=== PATIENT | female | born 2005 | race Caucasian/White ===

== ENCOUNTER 2024-02-05 18:10 | Outpatient (REF) | payer BC, SELFPAY | END 2024-02-05 18:11 | disposition home or self-care (01) | LOC: NPINS 18:10 | PROVIDERS: Visit Provider Pediatrics | DX: Z11.1 Encounter for screening for respiratory tuberculosis (principal) | CPT/HCPCS: 86480 ==

== ENCOUNTER 2025-01-23 11:27 | Outpatient (CLI) | payer BC, SELFPAY ==
[2025-01-25 09:18] LABS: QuantiFERON Mitogen minus NIL 9.95 IU/mL; QuantiFERON NIL 0.05 IU/mL; Quantiferon Plus TB1 minus NIL 0.01 IU/mL (<=0.34); Quantiferon Plus TB2 minus NIL 0.02 IU/mL (<=0.34); Quantiferon TB Gold Plus Negative (Negative)
== END 2025-01-23 11:28 | disposition home or self-care (01) ==
LOC: NPINS 11:29
PROVIDERS: Visit Provider Pediatrics
DX: Z11.1 Encounter for screening for respiratory tuberculosis (principal)
CPT/HCPCS: 86480

== ENCOUNTER 2025-02-05 01:31 | Emergency (ER) | payer BC, SELFPAY ==
--- OUTSIDE RECORDS SUMMARY | 2025-02-05 01:33 | XMS_ITS | Encounter Summary ---
Author Organization Formerly [facility], 1928–1983 and Affiliates Address [address] [place] [address] Care Team Providers Care Milk Drying Machine Operator Name Role Phone Unavailable Primary Care Provider Unavailabl e Encounter Details Date Type Department Care Team (Late st Contact Info) Description 03/18/2024 [facility] [place] [address] Christina Monroy MD [address] [facility] [address] [place] [address] Well adolescent visit (Primary Dx) Social History Tobacco Use Types Packs/Day Years Used Date Smoking Tobacco: Never Assessed Comments Unknown Sex and Gender Information Value Date Recorded Sex Assigned at Not on file Legal Sex Female 12:07 PM MDT Gender Identity Not on file Sexual Orientation Not on file documented as of this encounter Plan of Treatment Not on file documented as of this encounter Results * C. trachomatis / N. gonorrhea Amplified RNA (03/18/2024 10:30 PM MDT) Neisseria gonorrhea Amplified RNA Negative Negative, Repeat, Pending 03/19/2024 1:05 PM MDT [facility] Comment: Presumed negative for N. gonorrhoeae rRNA. Assay is a target amplification nucleic acid probe test utilizing target capture for the qualitative detection and differentiation of rRNA from Chlamydia trachomatis and/or Neisseria gonorrhoeae to aid in the diagnosis of urogenital disease. Negative results do not preclude possible infection, as results are dependent upon adequate specimen collection. Results should be interpreted in conjunction with other clinical and laboratory data available to the clinician. This assay is not intended for evaluation of suspected sexual abuse or for other medico-legal indications. Collection and testing of patient-collected vaginal swabs is not the preferred method for collection and is not intended to replace clinical examination. This test has not been validated for use with specimens collected by patients at home. Chlamydia trachomatis Amplified RNA Negative Negative, Repeat, Pending 03/19/2024 1:05 PM MDT [facility] Comment: Presumed negative for C. trachomatis rRNA. Assay is a target amplification nucleic acid probe test utilizing target capture for the qualitative detection and differentiation of rRNA from Chlamydia trachomatis and/or Neisseria gonorrhoeae to aid in the diagnosis of urogenital disease. Negative results do not preclude possible infection, as results are dependent upon adequate specimen collection. Results should be interpreted in conjunction with other clinical and laboratory data available to the clinician. This assay is not intended for evaluation of suspected sexual abuse or for other medico-legal indications. Collection and testing of patient-collected vaginal swabs is not the preferred method for collection and is not intended to replace clinical examination. This test has not been validated for use with specimens collected by patients at home. Urine Voided urine specimen / Unknown Non-blood Collection / Unknown 03/18/2024 10:30 PM MDT 03/18/2024 10:37 PM MDT us Christina Monroy MD LAB URINE IMMUNO ORDERABLES F inal Result [facility] [address] [place] [address], documented in this encounter Visit Diagnoses Diagnosis Well adolescent visit- Primary Routine or child health check documented in this encounter
--- OUTSIDE RECORDS SUMMARY | 2025-02-05 01:33 | XMS_ITS | Clinical Summary ---
Author Organization [facility] Address [address] [place] [address] Phone Care Team Providers Care Panelboard Operator Name Role Phone Jerod Corrigan M.D. Primary Care Provider [phone] Source Comments [facility], [place], [place] is fully implemented on [employer]. [facility] Allergies No known active allergies Medications * This document contains information received from the source organization and may not represent a complete record from that organization. * Be aware that medications may not be up to date as of this document. Always verify current medications with patient. Tri-Sprintec 0.18/0.215/0.25 MG-35 MCG Tab 1 tab by mouth every day 01/12/2020 Active Ferrous Sulfate (Iron) 325 (65 Fe) MG Tab 325 mg by mouth every day Active Immunizations Immunization Administration Dates Next Due [employer] (Purple Cap-12 years and older)-COVID-19, mRNA, LNP-S, PF, 30 mcg/0.3 mL dose 12/14/2020,11/23/2020 Social History Tobacco Use Types Packs/Day Years Used Date Smoking Tobacco: Never Smokeless Tobacco: Never Community Connections Answer Date Recor ded Caregiver PCP help Not on file 01/22/2020 Child PCP help Not on file 01/22/2020 Potential social isolation Not assesed 01/21 Appointment help Not on file 01/22/2020 Benefits help needed: Not on file 01/22/2020 Education concerns Not assesed 01/22/2020 Alcohol / Marijuana Use Answer Date Rec orded Alcohol/Marijuana- Caregiver: Not on file Alcohol last 12 mos: Not on file 11/15/2020 Marijuana- Patient Use: No 11/16/19 21 Tobacco Use Answer Date Recorded Tobacco: Caregiver Use Not on file Tobacco- Patient Use: No 01/23/2021 Depression risk Answer Date Recorded Caregiver Depression: Not on file 03/15/2020 Caregiver suicidal thoughts: Not on file Last PHQ-2 Not on file 03/15/2020 Last PHQ-9 Not on file 03/15/2020 Last EPDS Not on file 03/15/2020 Last EPDS self harm item: Not on file 2019 Transportation Answer Date Recorded Transportation Not on file 05/22/2023 [id number] 05/22/2023 Substance Use Answer Date Recorded Substances- Caregiver Use Not on file 2022 Substances- Patient Use: No 023 Comments Unknown Sex and Gender Information Value Date Recorded Sex Assigned at Not on file Legal Sex Female 12:24 PM MDT Gender Identity Not on file Sexual Orientation Not on file Last Filed Vital Signs Vital Sign Reading Time Taken Comments Blood Pressure - - Pulse 109 07/17/2008 12:46 PM MST Temperature 36.9 C (98.4 F) 01/22/2020 8:46 AM MDT Respiratory Rate 24 07/17/2008 12:46 PM MST Oxygen Saturation 96% 07/17/2008 12:46 PM MST Inhaled Oxygen Concentration - - Weight 60.8 kg (134 lb 0.6 oz) 01/22/2020 8:46 A M MDT Height 176.6 cm (5' 9.53) 01/22/2020 8:46 AM MD T Body Mass Index 19.49 01/22/2020 8:46 AM MDT Plan of Treatment Not on file Care Teams Panelboard Operator Relationship Specialty Start Date End Date Jerod Corrigan M.D. PCP - General 07/17/08
[2025-02-05 01:34] VITALS: BP 129/83; PULSE 66; RESP 16; TEMP 36.2; O2SAT 100; BMI 20.7
--- OUTSIDE RECORDS SUMMARY | 2025-02-05 01:34 | XMS_ITS | Referral Summary ---
Author Organization [facility] Address [address] [place] [address] Care Team Providers Care Career And Guidance Counselor Name Role Phone Pcp, None Given Primary Care Provider Unavailabl e Allergies No known active allergies Medications Tri-Sprintec (28) 0.18/0.215/0.25 mg-35 mcg (28) per tablet Take 1 tablet by mouth daily. 2 Active spironolactone (ALDACTONE) 50 MG tablet Take one tablet twice daily and decrease as instructed 2 Active tretinoin (RETIN-A) 0.025 % cream Apply pea sized amount to face at bedtime as tolerated 2 Active Active Problems No known active problems Immunizations Name Administration Dates Next Due DTaP 04/07/2009, 5,2004,08/05,2004 H1N1 Inj 09/08/2009,08/05/2009 HPV, 9-Valent 10/24/2016,06/15/2016,04/06/2016 Hep A, Ped/Adol, 2 dose 10/19/2007,04/13/2007 Hep B, adolescent or pediatric 07/06/2005,2003,2004 HiB (HbOC) 07/06/2005,2004,2004 Influenza (Flucelvax Quad) Vial 06/17/2017 Influenza (IM) Quadrivalent 05/23/2014 Influenza (IM), Quadrivalent , PF Syringe/SDV 06/20/2021,05/07/2020,06/30/2019,06/01 Influenza, Live, Intranasal 04/10/2013, 2,04/11/2011 Influenza, Preservative Free (Flucelvax Quad) Syringe 06/15/2016 Influenza, Unspecified 06/27/2015,2013,05/29/2010,05/20,05/13/2008,06/14/2007 MMR 04/07/2009,04/12/2005 Meningococcal Group B 03/29/2021,03/23/2020 Meningococcal MCV4P 03/23/2020,04/06/2015 Pneumococcal, Unspecified 07/06/2005,,2004,06/09 Poliovirus (IPV) 04/07/2009, 6,2004,08/05,2004 Tdap 04/06/2015 Varicella 04/07/2009,04/12/2005 Social History Tobacco Use Types Packs/Day Years Used Date Smoking Tobacco: Never Smokeless Tobacco: Never Alcohol Use Standard Drinks/Week Comments Never 0 (1 standard drink = 0.6 oz pur e alcohol) Comments No Sex and Gender Information Value Date Recorded Sex Assigned at Not on file Legal Sex Female 3:32 PM MST Gender Identity Not on file Sexual Orientation Not on file Last Filed Vital Signs Vital Sign Reading Time Taken Comments Blood Pressure 110/70 10/28/2021 3:22 PM MST Pulse - - Temperature - - Respiratory Rate - - Oxygen Saturation - - Inhaled Oxygen Concentration - - Weight 62.1 kg (137 lb) 10/28/2021 3:22 PM MST Height 177.8 cm (5' 10) 10/28/2021 3:22 PM MST Body Mass Index 19.66 10/28/2021 3:22 PM [facility] Plan of Treatment Not on file Insurance RUST RUST Care Teams Career And Guidance Counselor Relationship Specialty Start Date End Date Pcp, None Given PCP - General 08/27/21
--- OUTSIDE RECORDS SUMMARY | 2025-02-05 01:34 | XMS_ITS | Clinical Summary ---
Author Organization [facility] and [facility]ili[facility] Address [address] [place] [address] Care Team Providers Care Clay Products Glazer Name Role Phone Unavailable Primary Care Provider Unavailabl e Medications spironolactone (ALDACTONE) 50 mg tablet take 1 tablet by oral route 2 times every day 12/01/2021 Active Social History Tobacco Use Types Packs/Day Years Used Date Smoking Tobacco: Never Assessed Comments Unknown Sex and Gender Information Value Date Recorded Sex Assigned at Not on file Legal Sex Female 12:07 PM MDT Gender Identity Not on file Sexual Orientation Not on file Plan of Treatment Health Maintenance Due Date Last Done Comments Chlamydia Screening 2020 Meningococcal B Vaccine (1 of 2 - Standard) 2020 COVID-19 Vaccine (3 - season) 2024 12/14/2020, 11/23/2020 Influenza Vaccine (Season Ended) 2025 06/20/2021, 05/07/2020, 06/30/2019, Additional history exists DTaP,Tdap,and Td Vaccines (7 - Td or Tdap) 04/06/2025 04/06/2015, 04/07/2009, 07/06/2005, Additional history exists HIB Vaccines Completed 07/06/2005, 07/21, 2004 Hepatitis B Vaccines Completed 07/06/2005, 2004, 2004 Pneumococcal Vaccine: Pediatrics (0 to 5 Years) and At-Risk Patients (6 to 64 Years) Aged Out 07/06/2005, 2004, 2004, Additional history exists No longer eligible based on patient's age to complete this topic Hepatitis A Vaccines Completed 10/19/2007, 04/13/20 07 IPV Vaccines Completed 04/07/2009, 09/21, 2004, Additional history exists HPV Vaccines Completed 10/24/2016, 05/22, 04/06/2016 Meningococcal Vaccine Aged Out 03/29/2021 , 03/23/2020, 03/23/2020, Additional history exists No longer eligible based on patient's age to complete this topic Insurance BLUE CROSS/ANTHEM [employer] CROSS/ANTHEM
--- OUTSIDE RECORDS SUMMARY | 2025-02-05 01:34 | XMS_ITS | Clinical Summary ---
Author Organization [facility] Address [address] [place] [address] Care Team Providers Care Agency Sales Representative Name Role Phone Pcp, None Given Primary [...] (IPV) 04/07/2009, 6,2004,08/05,2004 Tdap 04/06/2015 Varicella 04/07/2009,04/12/2005 Family History Medical History Relation Name Comments No Known Problems Brother No Known Problems Father Hyperlipidemia Maternal Grandfather Hypertension Maternal Grandfather Breast Cancer Unilateral (or unspecified) Maternal Gra ndmother Hypertension Maternal Grandmother Stroke Maternal Grandmother Thyroid disease Mother Heart disease Paternal Grandfather Hyperlipidemia Paternal Grandmother Hypertension Paternal Grandmother Relation Name Status Comments Brother Alive Father Alive Maternal Grandfather Alive Maternal Grandmother Mother Alive Paternal Grandfather Alive Paternal Grandmother Alive Social History Tobacco Use Types Packs/Day Years [...] Body Mass Index 19.66 10/28/2021 3:22 PM MST Plan of Treatment Health Maintenance Due Date Last Done Comments Hepatitis C Screening 2004 COVID-19 Vaccine ( season) 2024 08/07/2021, 12/14/2020, 11/23/2020 Td/Tdap 04/06/2025 04/06/2015 Influenza Vaccine (Season Ended) 2025 06/20/2021, 05/07/2020, 06/30/2019, Additional history exists Pneumococcal Vaccine: Peds and At-Risk Patients < 65 Aged Out 07/06/2005, 2004, 2004, Additional history exists No longer eligible based on patient's age to complete this topic HPV Vaccines Completed 10/24/2016, 05/22, 04/06/2016 Meningococcal Vaccine Aged Out 03/23/2020, 015 No longer eligible based on patient's age to complete this topic MenB Vaccine Completed 03/29/2021, 03/23/2020 Insurance [employer] [facility] [employer] [facility] Care Teams Agency Sales Representative Relationship Specialty Start Date End Date Pcp, None Given PCP - General 08/27/21
--- NOTE | 2025-02-05 01:55 | ED_ITS ---
HPI - General Adult General Chief complaint: Extremity Pain/Injury, Lower Stated complaint: Fall, knee injury Time Seen by Provider: 02/05/25 01:47 Source: patient Mode of arrival: ambulatory Limitations: no limitations History of Present Illness HPI narrative: 19-year-old female presents to the emergency department 3 hours after a fall onto both bent knees and palms while running on tile, wee hours of the morning. No intoxication. No head injury, no loss of consciousness. Able to walk and bear weight without difficulty. Can bend both knees without difficulty. Concerned about swelling directly on the left tibial tuberosity area. Slight bruising is present. She is scheduled to work tomorrow and thought that she should get it ?checked out?. No other areas of injury. Using the legs just fine. No ankle or hip pain. Took some ibuprofen with some improvement. Observed ambulating into exam room with no difficulty. No history of surgery to this area in the past. No bleeding or blood clotting disorders. No anticoagulant use. No neurological changes. No numbness or tingling. Reports benign past medical history, no long-term health problems. Social history reports nonsmoker. No known drug allergies. ROS is notable for no other neurological, generalized, musculoskeletal or skin changes. Related Data Home Medications ?Medication ?Instructions ?Recorded ?Confirmed norgestimate-ethinyl estradiol 1 tab PO DAILY 02/19/24 07/24/24 0.18mg/0.215mg/0.25mg-0.035mg(28)tablet (Tri-Sprintec (28)) spironolactone 50 mg tablet 50 mg PO BID 02/19/2412/12 tretinoin 0.025 % topical cream 1 applic topical QPM 0 02/19/24 02/19/24 Allergies Allergy/AdvReac Type Severity Reaction Status Date / Time No Known Drug Allergies Allergy Verified 07/24/24 13:23 Exam Const: Vital Signs, click to edit/add: Vital Signs - 24 hr 02/05/25 01:34 Temperature 97.1 F L Pulse Rate [Left P ulse Oximeter] 66 Respiratory Rate 16 Blood Pressure [Ri ght Upper Arm] 129/83 Pulse Oximetry 100 Oxygen Delivery Me thod Room Air Documenting provider has reviewed patient's vital signs: yes Common normals: no apparent distress and alert General appearance: cooperative and well kempt HENMT: Common normals: normocephalic Head and scalp: normocephalic Other: Normal appearing lips and frontal dentition. No facial bruising or signs of trauma Eye: Common normals: conjunctivae normal General eye: normal appearance of both eyes Conjunctiva: conjunctiva(e) normal Other: Normal visual gaze and tracking. Neck & C-Spine: General: normal visual inspection Other: Moves neck freely on exam Resp: Common normals: normal respiratory effort Effort & inspection: able to speak in complete sentences Cardio: Common normals: regular rate, regular rhythm, S1 normal heart sound, S2 normal heart sound and no murmurs Rate: regular rate Rhythm: regular rhythm Heart sounds: S1 normal and S2 normal Extremity: Other: Observe moving both arms to transfer phone and personal items. Patient mainly concerned about contusions on the knees. General observation shows a very mild swelling to the tibial tuberosity with mild bruising. Thin frame with long legs makes for a very easy examination. Patient has excellent quad strength bilaterally. Normal palpation of each patellar tendon. Normal full range of motion of both knees. No ligamentous instability. Varus and valgus maneuvers are normal. The right knee has mild amount of swelling at the medial joint line, not at the tibial tuberosity. Slight bruising is present as well. Mild tenderness to palpation of the bruised area but not with manipulation of the ligament or varus and valgus maneuvers. Moves both ankles freely with no deformity. Normal flexion and extension at the hip. Bilateral normal pedal pulses. Injury appears very mild with absolutely no effusions or limitations of activity. Neuro: Sensorium/orientation: alert Gait (neuro): normal gait Motor exam: no movement abnormalities noted Psych: Appearance: well kempt Attitude: engaged Insight: insight good Judgement: judgment good Skin: Common normals: no rashes or lesions noted General skin exam: no rashes or lesions noted Course Course ED Course: 19-year-old female with bilateral mild contusions to both knees with no signs of major joint disruption. No signs of head injury or other emergent condition. Not suspicious for non accidental trauma. Counseled patient that based on her exam, I do not recommend x-ray. The the risk of radiation is small, it does not seem warranted. For pain, I recommend Tylenol 1000 mg every 6 hours and or ibuprofen 600 mg every 6 hours as needed for pain. Ice may be applied but there is no reason to limit her activities. Contusion may take 2-3 weeks to resolve. If still very bothersome after 2 weeks, recommend outpatient re-evaluation with specialty care. Vital Signs Vital signs: Initial Vital Signs Temperature 97.1 F L 02/05/25 01:34 Temperature Source Temporal Artery Scan 02/05/25 01:34 Pulse Rate 66 02/05/25 01:34 Pulse Rhythm Regular 02/05/25 01:34 Respiratory Rate 16 02/05/25 01:34 Blood Pressure 129/83 02/05/25 01:34 Blood Pressure Mean 98 02/05/25 01:34 Blood Pressure Position Sitting 02/05/25 01:34 Pulse Oximetry 100 02/05/25 01:34 Oxygen Delivery Method Room Air 02/05/25 01:34 Vital Signs Temperature 97.1 F L 02/05/25 01:34 Pulse Rate 66 02/05/25 01:34 Respiratory Rate 16 02/05/25 01:34 Blood Pressure 129/83 02/05/25 01:34 Pulse Oximetry 100 02/05/25 01:34 Oxygen Delivery Method Room Air 02/05/25 01:34 Temperature 97.1 F L 02/05/25 01:34 Pulse Rate 66 02/05/25 01:34 Respiratory Rate 16 02/05/25 01:34 Blood Pressure 129/83 02/05/25 01:34 Pulse Oximetry 100 02/05/25 01:34 Oxygen Delivery Method Room Air 02/05/25 01:34 Discharge Plan Discharge Clinical Impression: Contusion of knee with skin surface intact Patient Disposition: Home, Self-Care Condition: Stable Instructions: Contusion in Adults (ED) Additional Instructions: As we discussed, there are no signs of major disruption to the ligaments, cart ilage or other major supporting structures in the knee. You hit the bony prominences that are prone to tenderness, swelling and bruising. The tibial tuberosity on the left knee and the medial joint line on the right knee. These both will have swelling, bruising and this she will likely last for up to 2 weeks. Since there is no sign of any structural damage, I do not recommend x- rays. The risk of radiation is small, but not 0. For pain, I recommend Tylenol 1000 mg every 6 hours and or ibuprofen 600 mg every 6 hours. Give difficulty sleeping, it is okay to use Benadryl 25 mg at bedtime and or melatonin 10 mg at bedtime. There is no need to limit your activities. Mild achiness will be expected but you will not do any major structural damage by continuing to work, exercise or perform any activities of daily living. As a general rule of thumb, for a lower extremity injury, if you can comfortably take 4 steps on the injured joint repeatedly, it probably does not need emergent evaluation. If you still have significantly bothersome symptoms in 2 weeks that limit your ability to perform your daily living activities, I would recommend re-evaluation in the clinic and referral for specialty imaging that is not available in emergency department. Activity Level: No Restrictions Discharge Diet: Regular Prescriptions: No Action norgestimate-ethinyl estradiol [Tri-Sprintec (28)] 0.18/0.215/0.25 mg-35 mcg (28) tablet 1 tab PO DAILY spironolactone 50 mg tablet 50 mg PO BID tretinoin 0.025 % cream 1 applic topical QPM Follow Up/Referrals: Provider,Not a Local [Primary Care Provider, Family Practice] Stand Alone Forms: [employer] Info Instructions
== END 2025-02-05 02:18 | disposition home or self-care (01) ==
PROVIDERS: Emergency Provider Family Medicine
DX: M25.562 Pain in left knee (principal); M25.561 Pain in right knee; W19.XXXA Unspecified fall, initial encounter
CPT/HCPCS: 99283